=== PATIENT | male | born 1995 | race Caucasian/White ===

== ENCOUNTER 2017-06-26 02:05 | Emergency (ER) | END 2017-06-26 05:38 | disposition home or self-care (01) ==

== ENCOUNTER 2018-05-24 18:33 | Emergency (ER) | payer MEDICAID, OTHER ==
[~2018-05-24] VITALS: Wt 55.4 kg
[~2018-05-24 18:33] MED LIST: ONDA4TAB14 PO
[2018-05-24 18:37] VITALS: BP 100/59; PULSE 71; RESP 18
[2018-05-24] MEDS ORDERED: HYDROCODONE/APAP (5/325) TAB PO ONE (19:30)
[2018-05-24] MEDS ORDERED: ACET325T33 PO (19:34)
[2018-05-24] MEDS ORDERED: AMOX1TAB9 PO (19:34)
--- NOTE | 2018-05-24 21:50 | ERD ---
ER Documentation Chief Complaint Chief Complaint nose pain s/p hit in face with soccer ball HPI 23-year-old male presents the emergency department complaining of nasal pain after he was hit in the face with a soccer ball couple hours prior to being seen. Patient denies any loss of consciousness, nausea vomiting or vision changes. He states there was active bleeding to stop. He denies any and medications for this ROS All systems reviewed and are negative except as per history of present illness. Medications Home Meds Active Scripts Acetaminophen* (Tylenol*) 325 Mg Tablet, 2 TAB PO Q6 PRN for PAIN AND OR ELEVATED TEMP, #30 TAB Prov:ИВАН HODGES PA-C 05/24/18 Amoxicillin/Potassium Clav (Amox-Clav 500-125 mg Tablet) 500-125 mg Tab, 1 TAB PO BID for 10 Days, TAB Prov:ИВАН HODGES PA-C 05/24/18 Ondansetron (Ondansetron Odt) 4 Mg Tab.rapdis, 4 MG PO Q6H PRN for NAUSEA AND/OR VOMITING, #10 TAB Prov:LYNNETTE DALEY MD 06/26/17 Allergies Allergies: Coded Allergies: No Known Drug Allergies (Unverified Allergy, Unknown, 06/26/17) PMhx/Soc Medical and Surgical Hx: pt denies Medical Hx, pt denies Surgical Hx History of Surgery: No Anesthesia Reaction: No Hx Neurological Disorder: No Hx Respiratory Disorders: No Hx Cardiac Disorders: No Hx Psychiatric Problems: No Hx Miscellaneous Medical Probl: No Hx Alcohol Use: No Hx Substance Use: No Hx Tobacco Use: No Smoking Status: Never smoker Physical Exam Vitals Vital Signs Date Temp Pulse Resp B/P (MAP) Pulse Ox O2 O2 Flow FiO2 Time Delivery Rate 05/24/18 97.7 71 18 100/59 100 18:37 (73) Physical Exam Const: No acute distress Head: Atraumatic Eyes: Normal Conjunctiva ENT: Normal External Ears, mouth. Tenderness to palpation over the nasal bridge, no deformity noted. There is no evidence of septal hematoma on exam. No active bleeding Neck: Full range of motion. No meningismus. Resp: Clear to auscultation bilaterally Cardio: Regular rate and rhythm, no murmurs Abd: Soft, non tender, non distended. Normal bowel sounds Skin: No petechiae or rashes Back: No midline or flank tenderness Ext: No cyanosis, or edema Neur: Awake and alert Psych: Normal Mood and Affect Results 24 hrs Current Medications Medications Dose Sig/Alba Start Time Status Last (Trade) Ordered Route PRN Stop Time Admin Dose Reason Admin 1 tab ONCE ONCE 05/24/18 DC Acetaminophen PO 19:30 / 05/24/18 Hydrocodone 19:31 Bitart ([place] (5/325)) Procedures/MDM 23-year-old male presents emergency department with nasal pain after a soccer ball injury. Differential include contusion versus fracture. I have advised patient to follow-up with ENT specialist for further evaluation management. I have offered a CT scan of the nose however patient states that he would just get the imaging done with his primary care physician or specialist. There was no signs of septal hematoma on exam. Patient looks well, he has a normal neurological exam. I doubt any intracranial bleeding or fractures. However advised him to return to emerge department for any worsening signs or symptoms or not improving as expected. He understands and agrees with this plan Departure Diagnosis: Primary Impression: Contusion, nose Condition: Stable Patient Instructions: [place] Form- 1, Fracture, Nose Versus Contus (No X-Ray) Additional Instructions: Follow up with an ENT specialist ИВАН HODGES PA-C May 24, 2018 21:49
== END 2018-05-24 19:35 | disposition home or self-care (01) ==
LOC: FTE 18:33
DX: S00.33XA Contusion of nose, initial encounter (principal); W21.02XA Struck by soccer ball, initial encounter; Y92.322 Soccer field as the place of occurrence of the external cause
CPT/HCPCS: 99283

== ENCOUNTER 2018-06-15 02:47 | Emergency (ER) | payer OTHER ==
[~2018-06-15] VITALS: Ht 172.7 cm; Wt 55.7 kg
[~2018-06-15 02:47] MED LIST changes: +ACET325T33 PO; +AMOX1TAB9 PO
[2018-06-15 02:53] VITALS: BP 130/59; PULSE 73; RESP 16; Ht 172.7 cm; Wt 55.7 kg
[2018-06-15] MEDS ORDERED: BENZ-6 PO (05:50)
[2018-06-15] MEDS ORDERED: ALBU18HF INHALATION (05:50)
--- NOTE | 2018-06-15 05:53 | ERD ---
ER Documentation Chief Complaint Chief Complaint COUGH W/ PHLEM AND SOB X FEW DAYS HPI 23-year-old male patient with no significant past medical history presents to ED complaining of a productive cough that started a few days ago. Patient reports that he has not taking any medications. Denies any sick contacts. Denies any fever, chills, nausea, vomiting, diarrhea, neck stiffness. Denies any recent traveling. ROS All systems reviewed and are negative except as per history of present illness. Medications Home Meds Active Scripts Albuterol Sulfate* (Ventolin HFA*) 18 Gm Hfa.aer.ad, 2 PUFF INHALATION Q4H, #1 INHALER Prov:XIOMARA RUELAS PA-C 06/15/18 Benzonatate* (Tessalon Perle*) 100 Mg Capsule, 100 MG PO Q8H PRN for COUGH, #20 CAP Prov:XIOMARA RUELAS PA-C 06/15/18 Acetaminophen* (Tylenol*) 325 Mg Tablet, 2 TAB PO Q6 PRN for PAIN AND OR ELEVATED TEMP, #30 TAB Prov:ИВАН HODGES PA-C 05/24/18 Amoxicillin/Potassium Clav (Amox-Clav 500-125 mg Tablet) 500-125 mg Tab, 1 TAB PO BID for 10 Days, TAB Prov:ИВАН HODGES PA-C 05/24/18 Ondansetron (Ondansetron Odt) 4 Mg Tab.rapdis, 4 MG PO Q6H PRN for NAUSEA AND/OR VOMITING, #10 TAB Prov:LYNNETTE DALEY MD 06/26/17 Allergies Allergies: Coded Allergies: No Known Drug Allergies (Unverified Allergy, Unknown, 06/26/17) PMhx/Soc History of Surgery: No Anesthesia Reaction: No Hx Neurological Disorder: No Hx Respiratory Disorders: No Hx Cardiac Disorders: No Hx Psychiatric Problems: No Hx Miscellaneous Medical Probl: No Hx Alcohol Use: No Hx Substance Use: No Hx Tobacco Use: No Smoking Status: Never smoker FmHx Family History: No diabetes, No coronary disease Physical Exam Vitals Vital Signs Date Temp Pulse Resp B/P (MAP) Pulse Ox O2 O2 Flow FiO2 Time Delivery Rate 06/15/18 97.6 73 16 130/59 100 02:53 (82) Physical Exam Const: [id number], well-nourished. In no acute distress. Head: Atraumatic, normocephalic Eyes: Normal Conjunctiva without injection. No purulent discharge. PERRL. EOMI ENT: Normal external ear. Ear canal without erythema. Tympanic membrane pearly alva without effusion or bulging. Nasal canal clear with normal turbinates. Moist oropharynx without tonsillar exudates. Non-erythematous pharynx. Uvula mid line. No drooling. No trismus. Neck: Full range of motion. No meningismus. No cervical lymphadenopathy. Resp: Clear to auscultation bilaterally. No wheezing, rhonchi, rales, or crackles. No accessory muscle use. No retractions. Cardio: Regular rate and rhythm. No murmurs, rubs or gallops. Abd: Soft, non tender, non distended. Normal bowel sounds. No palpable masses. No rebound tenderness. No guarding. Skin: No petechiae or rashes Back: No midline tenderness. No CVA tenderness. Ext: No cyanosis, or edema. Neur: Awake and alert. Psych: Normal Mood and Affect Procedures/MDM 23-year-old male patient with no significant past medical history presents to ED complaining of productive cough, shortness breath that started a few days ago. Patient is afebrile and nontoxic-appearing. IMPRESSION: No evidence of acute cardiopulmonary disease. This patient presents to the ED with symptoms consistent with a viral acute upper respiratory infection. CXR negative for pneumonia, pneumothorax, pleural effusion. Patient's physical exam include lungs which were clear to auscultation and a normal pulse oximetry. There is a low suspicion for pneumonia, pneumothorax, mononucleosis, pulmonary embolism, epiglottitis, otitis media, otitis externa, viral/strep pharyngitis, sinusitis, myocarditis, pericarditis, endocarditis, peritonsillar abscess, mastoiditis, retropharyngeal abscess, meningitis, sepsis, acute abdomen or other emergent conditions. Fluids, rest, and symptomatic treatment are recommended for the management of patient's symptoms. Diagnosis: Cough Discharge medications: Tessalon Perles, Albuterol Follow up with primary care physician in 1-2 days. Instructed patient to return to the ED sooner for any worsening symptoms. Patient's questions were answered. Patient is hemodynamically stable. Patient understood and agreed with discharge plan. Patient discharged stable. Disclaimer: Inadvertent spelling and grammatical errors are likely due to EHR/dictation software use and do not reflect on the overall quality of patient care. Also, please note that the electronic time recorded on this note does not necessarily reflect the actual time of the patient encounter. Departure Diagnosis: Primary Impression: Cough Condition: Stable Patient Instructions: Uri, Viral, No Abx (Adult) Referrals: [facility] YOU HAVE RECEIVED A MEDICAL SCREENING EXAM AND THE RESULTS INDICATE THAT YOU DO NOT HAVE A CONDITION THAT REQUIRES URGENT TREATMENT IN THE EMERGENCY DEPARTMENT. FURTHER EVALUATION AND TREATMENT OF YOUR CONDITION CAN WAIT UNTIL YOU ARE SEEN IN YOUR DOCTORS OFFICE WITHIN THE NEXT 1-2 DAYS. IT IS YOUR RESPONSIBILITY TO MAKE AN APPOINTMENT FOR FOLOW-UP CARE. IF YOU HAVE A PRIMARY DOCTOR --you should call your primary doctor and schedule an appointment IF YOU DO NOT HAVE A PRIMARY DOCTOR YOU CAN CALL OUR PHYSICIAN REFERRAL HOTLINE AT IF YOU CAN NOT AFFORD TO SEE A PHYSICIAN YOU CAN CHOSE FROM THE FOLLOWING [facility] [address] [facility] [address] [facility] [facility] [address] [facility] [address] [facility] [address] [facility] [facility]. [address] [facility]. [facility] YOU HAVE RECEIVED A MEDICAL SCREENING EXAM AND THE RESULTS INDICATE THAT YOU DO NOT HAVE A CONDITION THAT REQUIRES URGENT TREATMENT IN THE EMERGENCY DEPARTMENT. FURTHER EVALUATION AND TREATMENT OF YOUR CONDITION CAN WAIT UNTIL YOU ARE SEEN IN YOUR DOCTORS OFFICE WITHIN THE NEXT 1-2 DAYS. IT IS YOUR RESPONSIBILITY TO MAKE AN APPOINTMENT FOR FOLOW-UP CARE. IF YOU HAVE A PRIMARY DOCTOR --you should call your primary doctor and schedule and appointment IF YOU DO NOT HAVE A PRIMARY DOCTOR YOU CAN CALL OUR PHYSICIAN REFERRAL HOTLINE AT . IF YOU CAN NOT AFFORD TO SEE A PHYSICIAN YOU CAN CHOSE FROM THE FOLLOWING [facility]: [facility] [address] [place] [address] [facility] [address] [place] [address] [facility] [address] [place] [address] [facility] URGENT [facility]SPECIALTIES Additional Instructions: Call your primary care doctor TOMORROW for an appointment during the next 2-3 days.See the doctor sooner or return here if your condition worsens before your appointment time. XIOMARA RUELAS PA-C Jun 15, 2018 05:53
== END 2018-06-15 05:56 | disposition home or self-care (01) ==
LOC: FTE 02:47
DX: R05 Cough (principal)
CPT/HCPCS: 71045; Z7502; 99283

== ENCOUNTER 2018-12-20 02:13 | Emergency (ER) | payer OTHER ==
[~2018-12-20] VITALS: Ht 172.7 cm; Wt 56.2 kg
[~2018-12-20 02:13] MED LIST changes: +ALBU18HF INHALATION; +AMOX500C2 PO; +BENZ-6 PO; +HYDR50TA15 PO; +IBUP-1542 PO
[2018-12-20 02:32] VITALS: BP 105/53; PULSE 62; RESP 18; Ht 172.7 cm; Wt 56.2 kg
--- NOTE | 2018-12-20 02:56 | ERD ---
ER Documentation Chief Complaint Chief Complaint pain left arm radiating to left shoulder/neck/left side of face yesterday HPI This is a 23-year-old male who presents emergency department with multiple complaints including left arm pain, chest discomfort, left ear pain. Denies headache, head injury, loss of consciousness, dizziness, neck pain, neck stiffness, throat pain, difficulty swallowing, difficulty breathing lying flat, shoulder pain, back pain, abdominal pain, nausea, vomiting, constipation, diarrhea, urinary symptoms, loss of bowel and bladder control, trauma, injury, falls, difficulty walking due to pain, numbness or tingling sensation, calf pain, recent travel, recent major surgery in the last 3 weeks, calf pain, recent long travel, recent exposure to any illness, recent antibiotic use in the last 3 months, fever, chills, seizures. Past medical history: Denies. Surgical history: Denies. Social: Denies smoking, use of alcoholic beverages, use of illegal drugs. ROS All systems reviewed and are negative except as per history of present illness. Medications Home Meds Active Scripts Amoxicillin* (Amoxicillin*) 500 Mg Cap, 500 MG PO TID for 7 Days, CAP Prov:ISABEL KING F 12/20/18 Hydroxyzine Hcl* (Hydroxyzine Hcl*) 50 Mg Tablet, 50 MG PO Q6H PRN for ANXIETY, #30 TAB Prov:LETHAMADONNANAYELICHIQUITA Lang 12/20/18 Ibuprofen* (Motrin*) 600 Mg Tab, 600 MG PO Q6H PRN for PAIN AND OR ELEVATED TEMP, #30 TAB Prov:LETHAMADONNAISABEL F 12/20/18 Albuterol Sulfate* (Ventolin HFA*) 18 Gm Hfa.aer.ad, 2 PUFF INHALATION Q4H, #1 INHALER Prov:XIOMARA RUELAS PA-C 06/15/18 Benzonatate* (Tessalon Perle*) 100 Mg Capsule, 100 MG PO Q8H PRN for COUGH, #20 CAP Prov:XIOMARA RUELAS PA-C 06/15/18 Acetaminophen* (Tylenol*) 325 Mg Tablet, 2 TAB PO Q6 PRN for PAIN AND OR ELEVATED TEMP, #30 TAB Prov:ИВАН HODGES PA-C 05/24/18 Amoxicillin/Potassium Clav (Amox-Clav 500-125 mg Tablet) 500-125 mg Tab, 1 TAB PO BID for 10 Days, TAB Prov:ИВАН HODGES PA-C 05/24/18 Ondansetron (Ondansetron Odt) 4 Mg Tab.rapdis, 4 MG PO Q6H PRN for NAUSEA AND/OR VOMITING, #10 TAB Prov:LYNNETTE DALEY MD 06/26/17 Allergies Allergies: Coded Allergies: No Known Drug Allergies (Unverified Allergy, Unknown, 12/20/18) PMhx/Soc History of Surgery: No Anesthesia Reaction: No Hx Neurological Disorder: No Hx Respiratory Disorders: No Hx Cardiac Disorders: No Hx Psychiatric Problems: No Hx Miscellaneous Medical Probl: No Hx Alcohol Use: No Hx Substance Use: No Hx Tobacco Use: No Physical Exam Vitals Physical Exam Const: Well-appearing. Not in acute respiratory distress. Head: Atraumatic Eyes: Normal Conjunctiva. No pain in eye movement. Extraocular movement of eyes are within normal limits. Eyeballs are not sunken. ENT: Normal External Ears, Nose and Mouth. Left ear: TM is erythematous. No bleeding. No discharge. No mastoid tenderness. Right ear: TM is not erythematous but no bleeding. No discharge with no hearing loss. No mastoid tenderness. There is no frontal and maxillary sinus tenderness to palpation. Throat: Uvula is in midline and not displaced. Tonsils are +1 bilaterally with redness but no exudates. Tolerating secretions. Patent airway. Speaks full and clear sentences. Neck: Full range of motion..~ No meningismus. No neck stiffness. Negative Kernig sign. Negative Brudzinski sign. No signs of meningeal irritat ion. Resp: Respirations even and unlabored. Lung sounds are clear to auscultation. No tripoding. Clear to auscultation bilaterally Cardio: Regular rate and rhythm, no murmurs Abd: Soft, non tender, non distended. Normal bowel sounds. Negative Buenrostro sign. Negative Rovsing sign. Negative Childwold sign (heel jar test). Negative psoas sign. Skin: No petechiae or rashes. No vesicular lesions. No hives. No skin tenting. No signs of dehydration. Back: No midline or flank tenderness Ext: No cyanosis, or edema. No deformities. Moves all 4 extremities. No neurovascular deficits. Neur: Awake and alert. Romberg test is negative. No neurological deficits. Psych: Normal Mood and Affect Results 24 hrs Current Medications Medications Dose Sig/Alba Start Time Status Last (Trade) Ordered Route PRN Stop Time Admin Dose Reason Admin Ibuprofen 600 mg ONCE ONCE 12/20/18 DC 12/20/18 (Motrin) PO 03:00 03:13 12/20/18 03:01 Lorazepam 1 mg ONCE ONCE 12/20/18 DC 12/20/18 (Ativan) PO 03:30 03:13 12/20/18 03:30 Procedures/MDM Diagnostic tests: EKG: Normal sinus rhythm with a ventricular rate of 68 bpm. No STEMI. Read by supervising physician. Treatment: Motrin. Ativan. Re-evaluation: Denies pain. No neurovascular deficit. No neurological deficits. Differential diagnosis I have low suspicion for acute myocardial infarction, sepsis, meningitis, mastoiditis, peritonsillar abscess. Final diagnosis: Otitis media. Anxiety. Prescription: Amoxicillin. Motrin. Hydroxyzine. Follow-up with PCP in the next 24-48 hours. Come back here in the emergency department for any new symptoms or any worsening symptoms. All questions and concerns were answered. Patient and family members verbalized understanding and agreed with plan of care. Hemodynamically stable on discharge. Departure Diagnosis: Primary Impression: Otitis media Additional Impression: Anxiety Condition: Stable Additional Instructions: Follow-up with PCP in the next 24-48 hours. Come back here in the emergency department for any new symptoms or any worsening symptoms. ISABEL KING Dec 20, 2018 02:56
[2018-12-20] MEDS ORDERED: IBUPROFEN 600 MG TAB PO ONE (03:00)
[2018-12-20] MEDS ORDERED: LORAZEPAM 1 MG TAB PO ONE (03:30)
== END 2018-12-20 03:25 | disposition home or self-care (01) ==
LOC: FTE 02:13
DX: H66.92 Otitis media, unspecified, left ear (principal); F41.9 Anxiety disorder, unspecified
CPT/HCPCS: 93005; Z7502; Z7610